=== PATIENT | male | born 1940 | race Caucasian/White ===

== ENCOUNTER 2021-01-18 07:06 | Day surgery (SDC) | payer MEDICARE, OTHER ==
[2021-01-17 11:35] VITALS: BMI 27.3
[2021-01-18] MEDS ORDERED: Vancomycin HCl 500 MG VIAL ONE (07:11)
[2021-01-18] MEDS ORDERED: Lidocaine 1% (PF) 30 ML VIAL ONE (09:30)
[2021-01-18] MEDS ORDERED: CEFAZOLIN 1 GM VIAL ONE (09:30)
[2021-01-18] MEDS ORDERED: Gentamicin 80 MG/2 ML VIAL ONE (09:30)
[2021-01-18] MEDS ORDERED: Fentanyl 100 MCG/2 ML VIAL ONE (09:41)
[2021-01-18] MEDS ORDERED: PHENYLEPHRINE-NS 100 MCG/ML 10 ML SYRINGE ONE (09:59)
[2021-01-18] MEDS ORDERED: Lidocaine 1% PF 5 ML VIAL ONE (09:59)
[2021-01-18] MEDS ORDERED: PROPOFOL 200 MG/20 ML VIAL ONE (09:59)
== END 2021-01-18 14:54 | disposition home or self-care (01) ==
LOC: SDC 07:06
PROVIDERS: ATTEND Internal Medicine Cardiovascular Disease
PROC: 0JPT0PZ Removal of Cardiac Rhythm Related Device from Trunk Subcutaneous Tissue and Fascia, Open Approach (ICD-10-PCS; principal; 2021-01-18)
PROC: 0JH607Z Insertion of Cardiac Resynchronization Pacemaker Pulse Generator into Chest Subcutaneous Tissue and Fascia, Open Approach (ICD-10-PCS; 2021-01-18)
DX: Z45.010 Encounter for checking and testing of cardiac pacemaker pulse generator [battery] (principal); I50.22 Chronic systolic (congestive) heart failure; I44.2 Atrioventricular block, complete; E03.9 Hypothyroidism, unspecified; I42.9 Cardiomyopathy, unspecified; I25.10 Atherosclerotic heart disease of native coronary artery without angina pectoris; E78.5 Hyperlipidemia, unspecified; Z87.891 Personal history of nicotine dependence; Z79.82 Long term (current) use of aspirin; Z79.899 Other long term (current) drug therapy; Z88.8 Allergy status to other drugs, medicaments and biological substances; Z95.5 Presence of coronary angioplasty implant and graft
CPT/HCPCS: 33229; 93005; 93010; J0690; J1580; J2001; J2704; J3010; J3370